=== PATIENT | female | born 1985 | race Caucasian/White ===

== ENCOUNTER 2016-08-27 13:58 | Inpatient (IN) | payer OTHER ==
[~2016-08-27] VITALS: Ht 165.2 cm; Wt 81.4 kg
[~2016-08-27 13:58] MED LIST: ACYCLOVIR800 MG PO; BCP TD; IRON325 M1; MOTRIN 600600 MG/TAB PO; NEWMANS TOP; NO HOME MEDICATIONS; PERCOCET 325 MG1 TA2 PO; PRENATAL MVI
[2016-09-25] VITALS (18 sets, daily range): BP systolic 90–121; BP diastolic 56–80; PULSE 55–82; TEMP 97–98.1
[2016-09-25] MEDS ORDERED: MOTRIN 800800 MG/TAB PO (09:24)
[2016-09-25] MEDS ORDERED: PERCOCET 325 MG1 TA2 PO (09:24)
[2016-09-25 09:43] LABS: BASO # 0.1 (0.0-0.2); BASO % 0.5 % (0.0-2.0); EOS # 0.1 (0.0-0.7); EOS % 0.5 % (0-4.0); GRAN % 72.2 % (42.2-75.2); HEMATOCRIT 37.7 % (37.0-47.0); HEMOGLOBIN 12.5 g/dl (12.5-16.0); LYMPH # 1.7 (1.2-3.4); LYMPH % 17.6 % (20.0-51.0); MEAN CELL VOLUME 82 fl (80.0-100.0); MEAN CORPUSCULAR HEMOGLOBIN 27 pg (27.0-31.0); MEAN CORPUSCULAR HGB CONC 33 g/dl (33.0-37.0); MEAN PLATELET VOLUME 12.1 fl (7.4-10.4); MONO # 0.8 (0.1-0.6); MONO % 8.5 % (1.7-9.3); PLATELET COUNT 141 K/mm3 (130-400); REDCELL DISTRIBUTION WIDTH-CV 15.4 % (11.5-14.5); WHITE BLOOD COUNT 9.7 K/mm3 (4.8-10.8)
[2016-09-25 15:46] LABS: HEMATOCRIT 29.4 % (37.0-47.0); HEMOGLOBIN 9.7 g/dl (12.5-16.0)
[2016-09-26 02:28] VITALS: BP 102/64; PULSE 67; TEMP 98
[2016-09-26 07:30] VITALS: BP 97/68; PULSE 78
[2016-09-26 07:52] LABS: HEMATOCRIT 29.8 % (37.0-47.0); HEMOGLOBIN 9.7 g/dl (12.5-16.0)
[2016-09-26 16:00] VITALS: BP 101/65; PULSE 70; TEMP 97.3
[2016-09-26 21:20] VITALS: BP 99/54; PULSE 68; TEMP 98.4
[2016-09-27 08:08] VITALS: BP 95/44; PULSE 70; TEMP 98
[2016-09-27] MEDS ORDERED: PERCOCET 325 MG1 TA2 PO (11:31)
[2016-09-27] MEDS ORDERED: IBU800 M1 PO (11:31)
== END 2016-09-27 13:00 | disposition home or self-care (01) | DRG 766 ==
LOC: OB 09-25 09:02 → LDR 09-25 14:53 → OB 09-27 13:00 → LDRO 10-01 13:57 → EDSTATUS 10-01 14:53
PROVIDERS: Obstetrics & Gynecology
PROC: 10D00Z1 Extraction of Products of Conception, Low, Open Approach (ICD-10-PCS; principal; 2016-09-25)
PROC: 0UB70ZZ Excision of Bilateral Fallopian Tubes, Open Approach (ICD-10-PCS; 2016-09-25)
DX: O34.211 Maternal care for low transverse scar from previous cesarean delivery (principal); N85.8 Other specified noninflammatory disorders of uterus; O99.824 Streptococcus B carrier state complicating childbirth; Z40.09 Encounter for prophylactic removal of other organ; Z88.0 Allergy status to penicillin; O99.02 Anemia complicating childbirth; D64.9 Anemia, unspecified; Z3A.39 39 weeks gestation of pregnancy; Z37.0 Single live birth
CPT/HCPCS: J0690; J1885; J2210; J2270; J2370; J2405; J2590; J2704; J3010; J7120

== ENCOUNTER 2019-07-04 03:14 | Emergency (ER) | payer BC ==
[~2019-07-04] VITALS: Ht 165.1 cm; Wt 75.0 kg
[~2019-07-04 03:14] MED LIST changes: +IBU800 M1 PO; +MOTRIN 800800 MG/TAB PO
[2019-07-04 03:22] VITALS: BP 116/60; PULSE 64; TEMP 96.9
== END 2019-07-04 05:15 | disposition left against medical advice (07) ==
LOC: COL.ER 03:14
DX: R10.32 Left lower quadrant pain (principal)

== ENCOUNTER → 2019-07-05 | Outpatient (CLI) | payer BC | LOC: COL.RAD 11:12 | DX: R10.2 Pelvic and perineal pain (principal) ==